=== PATIENT | male | born 2000 | race Hispanic/Latino ===

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

== ENCOUNTER 2021-01-29 14:42 | Emergency (ER) | payer OTHER ==
[~2021-01-29] VITALS: Ht 172.7 cm; Wt 75.0 kg
[~2021-01-29 14:42] MED LIST changes: +CEPHALEXIN500 MG PO
[2021-01-29] MEDS ORDERED: CYCLOBENZAPR5 MG PO (16:40)
[2021-01-29 16:52] VITALS: BP 120/74
== END 2021-01-29 17:00 | disposition home or self-care (01) | DRG 552 ==
LOC: ED 14:42
DX: S16.1XXA Strain of muscle, fascia and tendon at neck level, initial encounter (principal); V89.2XXA Person injured in unspecified motor-vehicle accident, traffic, initial encounter